=== PATIENT | male | born 1960 | race Caucasian/White ===

== ENCOUNTER 2017-01-31 11:59 | Inpatient (IN) | payer SELFPAY ==
[2017-01-31 12:15] VITALS: RESP 18; TEMP 97.3
[2017-01-31] MEDS ORDERED: Metoprolol 1 mg/ml Inj IVP STA (12:35)
[2017-01-31 12:55] LABS: BASO % 0.5 % (0.0-2.0); EOS # 0.2 K/uL (0.0-0.7); HEMATOCRIT 46.8 % (35.0-51.0); LYMPH # 1.4 K/uL (1.0-4.3); LYMPH % 18.3 % (20.0-40.0); MEAN CELL VOLUME 88.3 fl (80.0-94.0); MEAN CORPUSCULAR HEMOGLOBIN 29.1 pg (27.0-31.0); MEAN CORPUSCULAR HGB CONC 32.9 g/dL (33.0-37.0); MEAN PLATELET VOLUME 9.3 fl (7.2-11.7); MONO # 0.4 K/uL (0.0-0.8); MONO % 4.8 % (0.0-10.0); NEUT # 5.6 K/uL (1.8-7.0); NEUT % 73.4 % (50.0-75.0); NRBC % 0.1 % (0.0-0.0); RED CELL DISTRIBUTION WIDTH 14.2 % (11.5-14.5); WHITE BLOOD COUNT 7.6 K/uL (4.8-10.8)
[2017-01-31 13:01] VITALS: BP 146/104; PULSE 92; O2SAT 94
[2017-01-31 13:01] LABS: ALB/GLOB RATIO 1.5 (1.0-2.1); ALKALINE PHOSPHATASE 69 U/L (38-126); ALT/SGPT 44 U/L (21-72); AST/SGOT 123 U/L (17-59); BILIRUBIN,TOTAL 0.4 mg/dl (0.2-1.3); BLOOD UREA NITROGEN 15 mg/dl (9-20); CALCIUM 9.2 mg/dL (8.4-10.2); CARBON DIOXIDE 28 mmol/L (22-30); CHLORIDE 103 mmol/L (98-107); GFR AFRICAN-AMERICAN > 60; GLUCOSE,RANDOM 115 mg/dL (75-110); POTASSIUM 4.3 MMOL/L (3.6-5.0); SODIUM 140 mmol/l (132-148); TOTAL PROTEIN 7.5 G/DL (6.3-8.2)
--- NOTE | 2017-01-31 13:19 | RAD ---
HISTORY: chest pain COMPARISON: No prior. TECHNIQUE: Chest PA and lateral FINDINGS: LUNGS: No active pulmonary disease. PLEURA: No significant pleural effusion identified. No pneumothorax apparent. CARDIOVASCULAR: Normal. OSSEOUS STRUCTURES: Spinal degenerative changes. VISUALIZED UPPER ABDOMEN: Normal. OTHER FINDINGS: None. IMPRESSION: No active disease.
[2017-01-31 13:27] LABS: PARTIAL THROMBOPLASTIN TIME 31.9 Seconds (25.6-37.1)
--- NOTE | 2017-01-31 13:30 | ED PDOC ---
HPI: Chest Pain Time Seen by Provider: 01/31/17 12:19 Chief Complaint (Nursing): Chest Pain Chief Complaint (Provider): chest pain History Per: Patient History/Exam Limitations: no limitations Onset/Duration Of Symptoms: Sudden Onset Current Symptoms Are (Timing): Better Front/Back of Body, Lg (Color): 1 - pain Quality: Sharp, Burning Associated Symptoms: Diaphoresis Alleviating Factors: Rest Additional Complaint(s): 56yoM in ED for eval of acute onset of chest pain started 1.5 hrs ago- lasting 45 mins to the left side of chest radiating up and down arm and neck and radiating to back of neck with pressure sensation in head. pt states pain intensity increased during the pain interval and now in ER chest pain has resolved somewhat to 2/10 and no longer with neck pain and diaphoresis. pt however still describes pressure sensation/fullness in head. denies nausea or vomiting denies back pain . 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 hx of HTN - Risk Factors TAD Risk Factors: Pos: Hypertension Past Medical History Reviewed: Historical Data, Nursing Documentation, Vital Signs Vital Signs: Last Vital Signs Temp 97.3 F L 01/31/17 12:13 Pulse 92 H 01/31/17 12:55 Resp 18 01/31/17 12:55 BP 146/104 H 01/31/17 12:55 Pulse Ox 94 L 01/31/17 14:33 - Medical History PMH: Asthma, HTN, Hypercholesterolemia - Family History Family History: States: Unknown Family Hx - Social History Current smoker - smoking cessation education provided: Yes Alcohol: Social Drugs: Denies - Home Medications Home Medications: Ambulatory Orders Medication Instructions Recorded Oxycodone HCl/Acetaminophen 1 tab PO Q6 PRN #10 tab 05/12/14 [Percocet 325 mg-5 mg] Ibuprofen [Motrin] 600 mg PO TID 7 Days tab 11/09/15 - Allergies Allergies/Adverse Reactions: Allergies Allergy/AdvReac Type Severity Reaction Status Date / Time No Known Allergies Allergy Verified 11/09/15 09:47 CHLOE Risk Score for UA/NSTEMI - CHLOE Risk Score Age > 64: NO 3 or more CAD Risk Factors: YES Known CAD (Stenosis greater than 50%): YES Aspirin use in past 7 days: YES Severe Angina: YES EKG ST changes greater than 0.5mm: NO Positive Cardiac Marker: YES CHLOE Score: 5 Risk %: 26% Curb-65 Severity Score - CURB-65 Severity Score Confusion: No Bun >19mg/dl (>7mmol/L): No Respiratory Rate greater than/equal to 30: No Systolic BP <90 or Diastolic BP less than/equal 60mmHg: No Age >64: No Curb-65 Score: 0 Percentage 30-day mortality: 0.6% Wells Criteria for PE - Wells Criteria for Pulmonary Embolism Clinical Signs and Symptoms of DVT: No P.E is #1 Diagnosis, or Equally Likely: No Heart Rate >100: No Immobilization at least 3 days;Surgery previous 4 weeks: No Previous, objectively diagnosed PE or DVT: No Hemoptysis: No Malignancy w/treatment within 6 months, or palliative: No Total Score: 0 Review of Systems ROS Statement: Except As Marked, All Systems Reviewed And Found Negative Eyes: Negative for: Vision Change Cardiovascular: Positive for: Chest Pain Musculoskeletal: Positive for: Neck Pain, Arm Pain Physical Exam - Reviewed Nursing Documentation Reviewed: Yes Vital Signs Reviewed: Yes - Physical Exam Appears: Positive for: Well, Non-toxic, No Acute Distress Head Exam: Positive for: ATRAUMATIC, NORMAL INSPECTION, NORMOCEPHALIC Skin: Positive for: Normal Color, Warm, DRY Eye Exam: Positive for: EOMI, Normal appearance, PERRL ENT: Positive for: Normal ENT Inspection Neck: Positive for: Normal, Painless ROM Cardiovascular/Chest: Positive for: Regular Rate, Rhythm Respiratory: Positive for: CNT, Normal Breath Sounds Gastrointestinal/Abdominal: Positive for: Normal Exam, Bowel Sounds, Soft. Negative for: Tenderness Back: Positive for: Normal Inspection Extremity: Positive for: Normal ROM Neurologic/Psych: Positive for: Alert, Oriented - Laboratory Results Result Diagrams: 01/31/17 12:43 01/31/17 12:43 - ECG ECG Rhythm: Positive for: Normal QRS, Normal ST Segment, Sinus Rhythm O2 Sat by Pulse Oximetry: 94 - Radiology X-Ray: Interpreted by Me, Read By Radiologist X-Ray Interpretation: No Acute Disease - Progress ED Course And Treament: 01/31/17 01/31/17 01/31/17 12:43 12:43 12:43 WBC 7.6 RBC 5.30 Hgb 15.4 Hct 46.8 MCV 88.3 MCH 29.1 MCHC 32.9 L RDW 14.2 Plt Count 185 MPV 9.3 Neut % (Auto) 73.4 Lymph % (Auto) 18.3 L [place] % (Auto) 4.8 Eos % (Auto) 3.0 Baso % (Auto) 0.5 Neut # 5.6 Lymph # 1.4 [place] # 0.4 Eos # 0.2 Baso # 0.0 PT 11.4 INR 1.0 APTT 31.9 D-Dimer, Quantitative 255 H Sodium 140 Potassium 4.3 Chloride 103 Carbon Dioxide 28 Anion Gap 13 BUN 15 Creatinine 1.0 Est GFR ( Amer) > 60 Est GFR (Non-Af Amer) > 60 Random Glucose 115 H Calcium 9.2 Total Bilirubin 0.4 AST 123 H ALT 44 Alkaline Phosphatase 69 Troponin I 5.7900 H* Total Protein 7.5 Albumin 4.5 Globulin 3.0 Albumin/Globulin Ratio 1.5 Troponin is elelvated. Mr king made aware. Pt given lopressor, Nitro topical/SL. Pt states p[rior to ED arrival took 81mg of aSA and his BP medicaition. repeat EKG shows no changes -reviewed by MD William King MD in contact with MD cesario handle lathe operator. Medical Decision Making Medical Decision Making: MD William consulted MD Celso handle lathe operator covering for MD Jt will need cauterization for 02/03/[address] Shawanda Hamilton MD-made aware will accept pt to ICU to continue monitoring trop/EKG Pt will be admitted to Hospitalist-MD Jeremy PT given : Lovenox, nitroglycerin SL/Paste, Plavix, Lopressor. Disposition - Clinical Impression Clinical Impression: NSTEMI (non-ST elevated myocardial infarction) - Patient ED Disposition Is Patient to be Admitted: Yes - Disposition Disposition Time: 14:33 Condition: SERIOUS - Pt Status Changed To: Hospital Disposition Of: Inpatient - Admit Certification Admit to Inpatient:: After my assessment, the patient will require hospitalization for at least two midnights. This is because of the severity of symptoms shown, intensity of services needed, and/or the medical risk in this patient being treated as an outpatient.
[2017-01-31] MEDS ORDERED: Nitroglycerin 2% 15 INCH/30 GM TUBE TOP STA (13:37)
[2017-01-31] MEDS ORDERED: Nitroglycerin 2% Ointment Foilpak UD TOP ONE (13:42)
[2017-01-31] MEDS ORDERED: Enoxaparin 80 mg Syringe SC STA (13:59)
[2017-01-31] MEDS ORDERED: Nitroglycerin 2% Ointment Foilpak UD TOP STA (14:02)
--- NOTE | 2017-01-31 15:22 | CP.CCUPN ---
CCU Subjective - Physician Review Subjective (Free Text): ICU admission requested by ER MD: Daniele with h/o CAD, had CC 2 yrs ago found to have 60% blockage, c/o acute onset left sided CP (6 over 10 intensity) with radiation to jaw, and assoc with SOB and diaphoresis at 9AM; took 2 baby ASA , advil and his BP meds prior to arrival into ER approx. 90 mins later. HR was 73, BP 160/100, 99% SPO2 on presentation, Initial eval in ER showed not very impressible EKGs, but Trop was 5.79; given SL NTG and NTP 1 in, Lopressor and additional ASA with improvement in Bp to 140/100. Therapeutic Lovenox 80mg given in ER. Other vitals and I/O's reviewed. ALLERGIES: NKDA Home Meds: ROS: No other pertinent negs or positives on 10+ system review. PMSFH: HTN, Asthma, Herniorrhaphy, denies any Tobacco or ETOH use. All Nursing and physician documentation reviewed to date; no new pertinent info noted relevant to current medical problems. CXR: clear bilat (my interp). EK:07 study- Sinus 74/min, minor ST upward deflection II, III IMPRESSION / MAJOR PROBLEMS NOW: 1. Acute NSTEMI with h/o CAD 2. Uncontrolled HTN PLAN: 1. Continue ASA, BBs, topical Nitrates, stain, Plavix loading (600mg-Plavix na ve), Lovenox 90 mg Q12H. 2. ECHO, serial EKGs. 3. Lipid profile 4. Watch BP trends on BBs, nitrates. Treat if sustained MAP elevations above 110. 5. Cardiology eval for appropriateness of angiography. CCU Objective - Vital Signs / Intake & Output Vital Signs (Last 4 hours): Vital Signs Temp Pulse Resp BP Pulse Ox 01/31/17 14:33 94 L 01/31/17 12:55 92 H 18 146/104 H 94 L 01/31/17 12:13 97.3 F L 73 18 163/101 H 99 Intake and Output (Last 8hrs): Intake & Output 01/31/17 01/31/17 01/31/17 06:59 14:59 22:59 Weight 195 lb - Physical Exam Head: Positive for: Atraumatic, Normocephalic Pupils: Positive for: PERRL Extroacular Muscles: Positive for: EOMI Conjunctiva: Positive for: Normal Mouth: Positive for: Moist Mucous Membranes Respiratory/Chest: Positive for: Clear to Auscultation Cardiovascular: Positive for: Regular Rate and Rhythm, Normal S1, S2. Negative for: Murmurs, Rub Abdomen: Positive for: Normal Bowel Sounds. Negative for: Tenderness, Distention, Mass/Organomegaly Lower Extremity: Positive for: Normal Inspection. Negative for: Edema, CALF TENDERNESS, Cyanosis Neurological: Positive for: GCS=15, Motor Func Grossly Intact, Normal Sensory Function Skin: Positive for: Warm, Dry. Negative for: Rashes Psychiatric: Positive for: Alert, Oriented x 3 - Patient Studies Lab Studies: Lab Studies 01/31/17 01/31/17 01/31/17 Range/Units 12:43 12:43 12:43 WBC 7.6 (4.8-10.8) K/uL RBC 5.30 (4.40-5.90) Mil/uL Hgb 15.4 (12.0-18.0) g/dL Hct 46.8 (35.0-51.0) % MCV 88.3 (80.0-94.0) fl MCH 29.1 (27.0-31.0) pg MCHC 32.9 L (33.0-37.0) g/dL RDW 14.2 (11.5-14.5) % Plt Count 185 (130-400) K/uL MPV 9.3 (7.2-11.7) fl Neut % (Auto) 73.4 (50.0-75.0) % Lymph % (Auto) 18.3 L (20.0-40.0) % [place] % (Auto) 4.8 (0.0-10.0) % Eos % (Auto) 3.0 (0.0-4.0) % Baso % (Auto) 0.5 (0.0-2.0) % Neut # 5.6 (1.8-7.0) K/uL Lymph # 1.4 (1.0-4.3) K/uL [place] # 0.4 (0.0-0.8) K/uL Eos # 0.2 (0.0-0.7) K/uL Baso # 0.0 (0.0-0.2) K/uL PT 11.4 (9.8-13.1) Seconds INR 1.0 (0.9-1.2) APTT 31.9 (25.6-37.1) Seconds D-Dimer, Quantitative 255 H (0-230) ng/mlDDU Sodium 140 (132-148) mmol/l Potassium 4.3 (3.6-5.0) MMOL/L Chloride 103 (98-107) mmol/L Carbon Dioxide 28 (22-30) mmol/L Anion Gap 13 (10-20) BUN 15 (9-20) mg/dl Creatinine 1.0 (0.8-1.5) mg/dl Est GFR ( Amer) > 60 Est GFR (Non-Af Amer) > 60 Random Glucose 115 H (75-110) mg/dL Calcium 9.2 (8.4-10.2) mg/dL Total Bilirubin 0.4 (0.2-1.3) mg/dl AST 123 H (17-59) U/L ALT 44 (21-72) U/L Alkaline Phosphatase 69 (38-126) U/L Troponin I 5.7900 H* (0.00-0.120) ng/mL Total Protein 7.5 (6.3-8.2) G/DL Albumin 4.5 (3.5-5.0) g/dL Globulin 3.0 (2.2-3.9) gm/dL Albumin/Globulin Ratio 1.5 (1.0-2.1) Laboratory Results - last 24 hr 01/31/17 01/31/17 01/31/17 12:43 12:43 12:43 WBC 7.6 RBC 5.30 Hgb 15.4 Hct 46.8 MCV 88.3 MCH 29.1 MCHC 32.9 L RDW 14.2 Plt Count 185 MPV 9.3 Neut % (Auto) 73.4 Lymph % (Auto) 18.3 L [place] % (Auto) 4.8 Eos % (Auto) 3.0 Baso % (Auto) 0.5 Neut # 5.6 Lymph # 1.4 [place] # 0.4 Eos # 0.2 Baso # 0.0 PT 11.4 INR 1.0 APTT 31.9 D-Dimer, Quantitative 255 H Sodium 140 Potassium 4.3 Chloride 103 Carbon Dioxide 28 Anion Gap 13 BUN 15 Creatinine 1.0 Est GFR ( Amer) > 60 Est GFR (Non-Af Amer) > 60 Random Glucose 115 H Calcium 9.2 Total Bilirubin 0.4 AST 123 H ALT 44 Alkaline Phosphatase 69 Troponin I 5.7900 H* Total Protein 7.5 Albumin 4.5 Globulin 3.0 Albumin/Globulin Ratio 1.5 EKG/Cardiology Studies: see above Review of Systems - Review of Systems All systems: reviewed and no additional remarkable complaints except (as above)
--- NOTE | 2017-01-31 15:29 | CP.PCM.HP ---
History of Present Illness - History of Present Illness History of Present Illness: Chief complaint chest pain 56-year-old male with a past medical history of hypertension, prior evaluation for CAD, presented to the ER today with an acute episode of chest pain that was pressure-like in nature, moderate, associated with diaphoresis, malaise, and mild dyspnea. Patient states he took aspirin, his antihypertensives, and Advil which alleviated his symptoms. When patient was evaluated in the emergency room , patient refused aspirin and beta blockers. Plavix and lovenox full dose were also ordered. His troponin was positive at 5.7900, d-dimer was 255. EKG unchanged. Vitals were 97.3 heart rate 92 blood pressure 146/104 respiratory rate 18 99% on room air. ER physician spoke with patient's varnish maker helper Dr. Catalan who scheduled a cardiac catheterization for Friday at [facility]. Upon evaluation of the patient, patient is awake alert oriented to person place and time, denies any active chest pain, and states his symptoms have resolved since this morning. Patient expressed wanting to sign out AGAINST MEDICAL ADVICE, and after all risks and tests were explained, patient agreed to stay. He expressed understanding that he is having a heart attack which may progress and worsen, hence admission to the intensive care unit. He expressed understanding of the need for further evaluation, admission to the ICU, trending cardiac enzymes and electrocardiograms, medical management, as well as cardiac catheterization on Friday. Approximately 15 minutes later, patient again expressed to ED staff that he wished to sign out AGAINST MEDICAL ADVICE. Patient had gotten dressed, and stated he was leaving AMA. Multiple attempts made to encourage patient to stay for further evaluation and treatment, however patient refused. It was explained to him again the risks of leaving included but were not limited to, his heart attack, worsening condition, possible permanent debilitation, sudden cardiac , and possible from other causes as well. Patient expressed full understanding, stating that he also knew "that he could and [he] is a survivor." Patient signed AMA. Review of systems per HPI all other systems reviewed negative by me Past medical and surgical history: Hypertension, CAD Family history: Coronary artery disease Social history: Patient denies tobacco, alcohol, illicit drug use. But upon chart review patient has been positive for cocaine abuse. Allergies: No known drug allergies Medications as below Vitals were reviewed Physical exam: Constitutional- cooperative, awake, alert. Head- NCAT, PERRL Eye- PERRL, normal accommodation ENT- normal exam, MMM. Neck- normal inspection, supple, no JVD Respiratory- CTAB, no wheezes rales rhonchi Cardiovascular- RRR, +S1, +S2 no MRG GI/Abdominal- normal bowel sounds, soft, no mass, no hsm Skin- warm, dry Extremities Exam- normal capillary refill, normal inspection Neurological Exam- alert, stable gait. Oriented to person place and time. Strength testing equal in bilateral upper and lower extremities. Psych- normal mood, normal affect 01/31/17 01/31/17 01/31/17 12:43 12:43 12:43 WBC 7.6 RBC 5.30 Hgb 15.4 Hct 46.8 MCV 88.3 MCH 29.1 MCHC 32.9 L RDW 14.2 Plt Count 185 MPV 9.3 Neut % (Auto) 73.4 Lymph % (Auto) 18.3 L [place] % (Auto) 4.8 Eos % (Auto) 3.0 Baso % (Auto) 0.5 Neut # 5.6 Lymph # 1.4 [place] # 0.4 Eos # 0.2 Baso # 0.0 PT 11.4 INR 1.0 APTT 31.9 D-Dimer, Quantitative 255 H Sodium 140 Potassium 4.3 Chloride 103 Carbon Dioxide 28 Anion Gap 13 BUN 15 Creatinine 1.0 Est GFR ( Amer) > 60 Est GFR (Non-Af Amer) > 60 Random Glucose 115 H Calcium 9.2 Total Bilirubin 0.4 AST 123 H ALT 44 Alkaline Phosphatase 69 Troponin I 5.7900 H* Total Protein 7.5 Albumin 4.5 Globulin 3.0 Albumin/Globulin Ratio 1.5 56-year-old male with a past medical history of hypertension, prior evaluation for CAD, presented to the ER today with an acute episode of chest pain that was pressure-like in nature, moderate, associated with diaphoresis, malaise, and mild dyspnea. Patient states he took aspirin, his antihypertensives, and Advil which alleviated his symptoms. When patient was evaluated in the emergency room , patient refused aspirin and beta blockers. Plavix and lovenox full dose were also ordered. His troponin was positive at 5.7900, d-dimer was 255. EKG unchanged. Vitals were 97.3 heart rate 92 blood pressure 146/104 respiratory rate 18 99% on room air. ER physician spoke with patient's varnish maker helper Dr. Catalan who scheduled a cardiac catheterization for Friday at [facility]. Upon evaluation of the patient, patient is awake alert oriented to person place and time, denies any active chest pain, and states his symptoms have resolved since this morning. Patient expressed wanting to sign out AGAINST MEDICAL ADVICE, and after all risks and tests were explained, patient agreed to stay. He expressed understanding that he is having a heart attack which may progress and worsen, hence admission to the intensive care unit. He expressed understanding of the need for further evaluation, admission to the ICU, trending cardiac enzymes and electrocardiograms, medical management, as well as cardiac catheterization on Friday. Approximately 15 minutes later, patient again expressed to ED staff that he wished to sign out AGAINST MEDICAL ADVICE. Patient had gotten dressed, and stated he was leaving AMA. Multiple attempts made to encourage patient to stay for further evaluation and treatment, however patient refused. It was explained to him again the risks of leaving included but were not limited to, his heart attack, worsening condition, possible permanent debilitation, sudden cardiac , and possible from other causes as well. Patient expressed full understanding, stating that he also knew "that he could and [he] is a survivor." Patient signed AMA. Present on Admission - Present on Admission Any Indicators Present on Admission: No Past Patient History - Past Social History Alcohol: Social Drugs: Denies - CARDIAC Hx Hypercholesterolemia: Yes Hx Hypertension: Yes - PULMONARY Hx Asthma: Yes - PSYCHIATRIC Hx Substance Use: No - SURGICAL HISTORY Hx Herniorrhaphy: Yes - ANESTHESIA Hx Anesthesia: Yes Hx Anesthesia Reactions: No Meds Allergies/Adverse Reactions: Allergies Allergy/AdvReac Type Severity Reaction Status Date / Time No Known Allergies Allergy Verified 11/09/15 09:47 Results - Vital Signs Recent Vital Signs: Last Vital Signs Temp 97.3 F L 01/31/17 12:13 Pulse 92 H 01/31/17 12:55 Resp 18 01/31/17 12:55 BP 146/104 H 01/31/17 12:55 Pulse Ox 94 L 01/31/17 14:33 - Labs Result Diagrams: 01/31/17 12:43 01/31/17 12:43 Labs: Laboratory Results - last 24 hr 01/31/17 01/31/17 01/31/17 12:43 12:43 12:43 WBC 7.6 RBC 5.30 Hgb 15.4 Hct 46.8 MCV 88.3 MCH 29.1 MCHC 32.9 L RDW 14.2 Plt Count 185 MPV 9.3 Neut % (Auto) 73.4 Lymph % (Auto) 18.3 L [place] % (Auto) 4.8 Eos % (Auto) 3.0 Baso % (Auto) 0.5 Neut # 5.6 Lymph # 1.4 [place] # 0.4 Eos # 0.2 Baso # 0.0 PT 11.4 INR 1.0 APTT 31.9 D-Dimer, Quantitative 255 H Sodium 140 Potassium 4.3 Chloride 103 Carbon Dioxide 28 Anion Gap 13 BUN 15 Creatinine 1.0 Est GFR ( Amer) > 60 Est GFR (Non-Af Amer) > 60 Random Glucose 115 H Calcium 9.2 Total Bilirubin 0.4 AST 123 H ALT 44 Alkaline Phosphatase 69 Troponin I 5.7900 H* Total Protein 7.5 Albumin 4.5 Globulin 3.0 Albumin/Globulin Ratio 1.5
--- NOTE | 2017-01-31 15:58 | CP.PCM.DIS ---
Provider - Provider Date of Admission: 01/31/17 14:09 Attending physician: Zelda Luna DO Time Spent in preparation of Discharge (in minutes): 30 Diagnosis - Discharge Diagnosis (1) NSTEMI (non-ST elevated myocardial infarction) Status: Acute Hospital Course - Lab Results Lab Results: Most Recent Lab Values WBC 7.6 K/uL (4.8-10.8) 01/31/17 12:43 RBC 5.30 Mil/uL (4.40-5.90) 01/31/17 12:43 Hgb 15.4 g/dL (12.0-18.0) 01/31/17 12:43 Hct 46.8 % (35.0-51.0) 01/31/17 12:43 MCV 88.3 fl (80.0-94.0) 01/31/17 12:43 MCH 29.1 pg (27.0-31.0) 01/31/17 12:43 MCHC 32.9 g/dL (33.0-37.0) L 01/31/17 12:43 RDW 14.2 % (11.5-14.5) 01/31/17 12:43 Plt Count 185 K/uL (130-400) 01/31/17 12:43 MPV 9.3 fl (7.2-11.7) 01/31/17 12:43 Neut % (Auto) 73.4 % (50.0-75.0) 01/31/17 12:43 Lymph % (Auto) 18.3 % (20.0-40.0) L 01/31/17 12:43 [place] % (Auto) 4.8 % (0.0-10.0) 01/31/17 12:43 Eos % (Auto) 3.0 % (0.0-4.0) 01/31/17 12:43 Baso % (Auto) 0.5 % (0.0-2.0) 01/31/17 12:43 Neut # 5.6 K/uL (1.8-7.0) 01/31/17 12:43 Lymph # 1.4 K/uL (1.0-4.3) 01/31/17 12:43 [place] # 0.4 K/uL (0.0-0.8) 01/31/17 12:43 Eos # 0.2 K/uL (0.0-0.7) 01/31/17 12:43 Baso # 0.0 K/uL (0.0-0.2) 01/31/17 12:43 PT 11.4 Seconds (9.8-13.1) 01/31/17 12:43 INR 1.0 (0.9-1.2) 01/31/17 12:43 APTT 31.9 Seconds (25.6-37.1) 01/31/17 12:43 D-Dimer, Quantitative 255 ng/mlDDU (0-230) H 01/31/17 12:43 Sodium 140 mmol/l (132-148) 01/31/17 12:43 Potassium 4.3 MMOL/L (3.6-5.0) 01/31/17 12:43 Chloride 103 mmol/L (98-107) 01/31/17 12:43 Carbon Dioxide 28 mmol/L (22-30) 01/31/17 12:43 Anion Gap 13 (10-20) 01/31/17 12:43 BUN 15 mg/dl (9-20) 01/31/17 12:43 Creatinine 1.0 mg/dl (0.8-1.5) 01/31/17 12:43 Est GFR ( Amer) > 60 01/31/17 12:43 Est GFR (Non-Af Amer) > 60 01/31/17 12:43 Random Glucose 115 mg/dL (75-110) H 01/31/17 12:43 Calcium 9.2 mg/dL (8.4-10.2) 01/31/17 12:43 Total Bilirubin 0.4 mg/dl (0.2-1.3) 01/31/17 12:43 AST 123 U/L (17-59) H 01/31/17 12:43 ALT 44 U/L (21-72) 01/31/17 12:43 Alkaline Phosphatase 69 U/L (38-126) 01/31/17 12:43 Troponin I 5.7900 ng/mL (0.00-0.120) H* 01/31/17 12:43 Total Protein 7.5 G/DL (6.3-8.2) 01/31/17 12:43 Albumin 4.5 g/dL (3.5-5.0) 01/31/17 12:43 Globulin 3.0 gm/dL (2.2-3.9) 01/31/17 12:43 Albumin/Globulin Ratio 1.5 (1.0-2.1) 01/31/17 12:43 - Hospital Course Hospital Course: chief complaint chest pain 56-year-old male with a past medical history of hypertension, prior evaluation for CAD, presented to the ER today with an acute episode of chest pain that was pressure-like in nature, moderate, associated with diaphoresis, malaise, and mild dyspnea. Patient states he took aspirin, his antihypertensives, and Advil which alleviated his symptoms. When patient was evaluated in the emergency room , patient refused aspirin and beta blockers. Plavix and lovenox full dose were also ordered. His troponin was positive at 5.7900, d-dimer was 255. EKG unchanged. Vitals were 97.3 heart rate 92 blood pressure 146/104 respiratory rate 18 99% on room air. ER physician spoke with patient's fabric coating supervisor Dr. Catalan who scheduled a cardiac catheterization for Friday at [facility]. Upon evaluation of the patient, patient is awake alert oriented to person place and time, denies any active chest pain, and states his symptoms have resolved since this morning. Patient expressed wanting to sign out AGAINST MEDICAL ADVICE, and after all risks and tests were explained, patient agreed to stay. He expressed understanding that he is having a heart attack which may progress and worsen, hence admission to the intensive care unit. He expressed understanding of the need for further evaluation, admission to the ICU, trending cardiac enzymes and electrocardiograms, medical management, as well as cardiac catheterization on Friday. Approximately 15 minutes later, patient again expressed to ED staff that he wished to sign out AGAINST MEDICAL ADVICE. Patient had gotten dressed, and stated he was leaving AMA. Multiple attempts made to encourage patient to stay for further evaluation and treatment, however patient refused. It was explained to him again the risks of leaving included but were not limited to, his heart attack, worsening condition, possible permanent debilitation, sudden cardiac , and possible from other causes as well. Patient expressed full understanding, stating that he also knew "that he could and [he] is a survivor." Patient signed AMA. Review of systems per HPI all other systems reviewed negative by me Past medical and surgical history: Hypertension, CAD Family history: Coronary artery disease Social history: Patient denies tobacco, alcohol, illicit drug use. But upon chart review patient has been positive for cocaine abuse. Allergies: No known drug allergies Medications as below Vitals were reviewed Physical exam: Constitutional- cooperative, awake, alert. Head- NCAT, PERRL Eye- PERRL, normal accommodation ENT- normal exam, MMM. Neck- normal inspection, supple, no JVD Respiratory- CTAB, no wheezes rales rhonchi Cardiovascular- RRR, +S1, +S2 no MRG GI/Abdominal- normal bowel sounds, soft, no mass, no hsm Skin- warm, dry Extremities Exam- normal capillary refill, normal inspection Neurological Exam- alert, stable gait. Oriented to person place and time. Strength testing equal in bilateral upper and lower extremities. Psych- normal mood, normal affect 01/31/17 01/31/17 01/31/17 12:43 12:43 12:43 WBC 7.6 RBC 5.30 Hgb 15.4 Hct 46.8 MCV 88.3 MCH 29.1 MCHC 32.9 L RDW 14.2 Plt Count 185 MPV 9.3 Neut % (Auto) 73.4 Lymph % (Auto) 18.3 L [place] % (Auto) 4.8 Eos % (Auto) 3.0 Baso % (Auto) 0.5 Neut # 5.6 Lymph # 1.4 [place] # 0.4 Eos # 0.2 Baso # 0.0 PT 11.4 INR 1.0 APTT 31.9 D-Dimer, Quantitative 255 H Sodium 140 Potassium 4.3 Chloride 103 Carbon Dioxide 28 Anion Gap 13 BUN 15 Creatinine 1.0 Est GFR ( Amer) > 60 Est GFR (Non-Af Amer) > 60 Random Glucose 115 H Calcium 9.2 Total Bilirubin 0.4 AST 123 H ALT 44 Alkaline Phosphatase 69 Troponin I 5.7900 H* Total Protein 7.5 Albumin 4.5 Globulin 3.0 Albumin/Globulin Ratio 1.5 56-year-old male with a past medical history of hypertension, prior evaluation for CAD, presented to the ER today with an acute episode of chest pain that was pressure-like in nature, moderate, associated with diaphoresis, malaise, and mild dyspnea. Patient states he took aspirin, his antihypertensives, and Advil which alleviated his symptoms. When patient was evaluated in the emergency room , patient refused aspirin and beta blockers. Plavix and lovenox full dose were also ordered. His troponin was positive at 5.7900, d-dimer was 255. EKG unchanged. Vitals were 97.3 heart rate 92 blood pressure 146/104 respiratory rate 18 99% on room air. ER physician spoke with patient's fabric coating supervisor Dr. Catalan who scheduled a cardiac catheterization for Friday at [facility]. Upon evaluation of the patient, patient is awake alert oriented to person place and time, denies any active chest pain, and states his symptoms have resolved since this morning. Patient expressed wanting to sign out AGAINST MEDICAL ADVICE, and after all risks and tests were explained, patient agreed to stay. He expressed understanding that he is having a heart attack which may progress and worsen, hence admission to the intensive care unit. He expressed understanding of the need for further evaluation, admission to the ICU, trending cardiac enzymes and electrocardiograms, medical management, as well as cardiac catheterization on Friday. Approximately 15 minutes later, patient again expressed to ED staff that he wished to sign out AGAINST MEDICAL ADVICE. Patient had gotten dressed, and stated he was leaving AMA. Multiple attempts made to encourage patient to stay for further evaluation and treatment, however patient refused. It was explained to him again the risks of leaving included but were not limited to, his heart attack, worsening condition, possible permanent debilitation, sudden cardiac , and possible from other causes as well. Patient expressed full understanding, stating that he also knew "that he could and [he] is a survivor." Patient signed AMA. ASSESSMENT PLAN NSTEMI PATIENT SIGNED AMA Discharge Exam - Head Exam Head Exam: ATRAUMATIC, NORMAL INSPECTION, NORMOCEPHALIC Discharge Plan - Follow Up Plan Condition: SERIOUS Disposition: AGAINST MEDICAL ADVICE
[2017-01-31] MEDS ORDERED: Nitroglycerin 2% Ointment Foilpak UD TOP SCH (17:00)
[2017-01-31] MEDS ORDERED: Enoxaparin 80 mg Syringe SC SCH (21:00)
--- NOTE | 2017-02-01 12:52 | CARD ---
APPROVED REPORT EKG Measurement Heart [id number] <Conclusion> Normal sinus rhythm Inferior infarct, age undetermined Abnormal ECG
--- NOTE | 2017-02-01 12:53 | CARD ---
APPROVED REPORT EKG Measurement Heart [id number] <Conclusion> Normal sinus rhythm Possible Inferior infarct, age undetermined Abnormal ECG
== END 2017-01-31 14:55 | disposition left against medical advice (07) | DRG 282 ==
LOC: H.ER 11:59 → H.ERHOLD 14:09
PROVIDERS: ADMIT Student in an Organized Health Care Education/Training Program; ATTEND Student in an Organized Health Care Education/Training Program
DX: I21.4 Non-ST elevation (NSTEMI) myocardial infarction (principal); I10 Essential (primary) hypertension; I25.10 Atherosclerotic heart disease of native coronary artery without angina pectoris; E78.00 Pure hypercholesterolemia, unspecified; F17.200 Nicotine dependence, unspecified, uncomplicated; J45.909 Unspecified asthma, uncomplicated; Z53.21 Procedure and treatment not carried out due to patient leaving prior to being seen by health care provider; Z98.61 Coronary angioplasty status